=== PATIENT | female | born 1985 | race Caucasian/White ===

== ENCOUNTER 2017-10-26 08:57 | Emergency (ER) | payer OTHER ==
[~2017-10-26] VITALS: Ht 152.4 cm; Wt 52.2 kg
[2017-10-26 09:45] LABS: BASOPHILS % 0.4 % (0.0-1.0); EOSINOPHILS # (AUTO) 0.2 (0.0-0.4); EOSINOPHILS % 4.5 % (0.0-6.0); HEMATOCRIT 38.8 % (34.2-44.1); HEMOGLOBIN 13.4 g/dL (12.0-16.0); LYMPHOCYTES # (AUTO) 2.1 (1.0-3.2); LYMPHOCYTES % 41.8 % (18.0-39.1); MEAN CORPUSCULAR HEMOGLOBIN 31.3 pg (28-32); MEAN CORPUSCULAR HGB CONC 34.5 g/dL (31-35); MEAN CORPUSCULAR VOLUME 90.7 fL (81-99); MONOCYTES # (AUTO) 0.2 (0.2-0.8); MONOCYTES % 4.7 % (4.4-11.3); NEUTROPHILS # (AUTO) 2.5 (2.1-6.9); NEUTROPHILS % 48.2 % (38.7-80.0); PLATELET COUNT 244 x10e3/uL (140-360); RED BLOOD COUNT 4.28 x10e6/uL (3.6-5.1); RED CELL DISTRIBUTION WIDTH 12.1 % (11.7-14.4)
[2017-10-26 09:55] LABS: ANION GAP 10.3 mmol/L (8-16); BLOOD UREA NITROGEN 12 mg/dL (7-26); BUN/CREATININE RATIO 16 (6-25); CALCIUM 8.8 mg/dL (8.4-10.2); CARBON DIOXIDE 26 mmol/L (22-29); CHLORIDE 110 mmol/L (98-107); CREATININE, SERUM 0.77 mg/dL (0.57-1.11); EST GLOMERULAR FILTRATION RATE > 60 ML/MIN (60-); GLUCOSE 100 mg/dL (74-118); POTASSIUM 4.3 mmol/L (3.5-5.1); SODIUM 142 mmol/L (136-145)
--- NOTE | 2017-10-26 10:00 | Diagnostic Imaging Report ---
EXAMINATION: Chest, CHEST 2 VIEWS INDICATION: Chest pain COMPARISON: Chest 2 views 08/13/2014 FINDINGS: LINES: None. Heart: Normal cardiac silhouette. Vascular: The pulmonary vasculature is within normal limits. Mediastinum: No mediastinal, hilar, or axillary mass or lymphadenopathy. Lungs: No parenchymal mass. No focal consolidation. Pleura: No pleural effusion. No pneumothorax. Bones: No acute osseous abnormality. Soft tissues: Normal. Impression: No acute radiographic abnormality. Signed by: Dr. Pj Shore M.D. on 10/26/2017 9:56 AM
[2017-10-26] MEDS ORDERED: IPRATROPIUM BROMIDE 0.02% 2.5 ML NEB NEB STA (10:19)
[2017-10-26] MEDS ORDERED: ALBUTEROL SULF 0.083% NEB SOLN 3 ML NEB NEB STA (10:19)
[2017-10-26] MEDS ORDERED: PROAIR HFA INH8.5 GM INH (10:27)
[2017-10-26] MEDS ORDERED: ZITHROMAX TRI-500 MG PO (10:27)
[2017-10-26] MEDS ORDERED: ACETAMINOPHEN/CODEINE ELIX 120-12 MG/5 ML UDC PO ONE (10:30)
[2017-10-26] MEDS ORDERED: DEXAMETHASONE SOD PHOS 10 MG/1 ML VIAL INJ ONE (10:30)
== END 2017-10-26 11:35 | disposition home or self-care (01) ==
LOC: ER 08:57
DX: R05 Cough (principal); J20.9 Acute bronchitis, unspecified
CPT/HCPCS: 36415; 71020; 80048; 85025; 87400; 99284; J1100; 71046

== ENCOUNTER 2017-10-27 02:28 | Emergency (ER) | payer OTHER ==
[~2017-10-27] VITALS: Ht 180.3 cm; Wt 52.2 kg
[~2017-10-27 02:28] MED LIST: PROAIR HFA INH8.5 GM INH; ZITHROMAX TRI-500 MG PO
--- OUTSIDE RECORDS SUMMARY | 2017-10-27 02:31 | XMS REPORT ---
Author [facility] Address Unknown Phone Unavailable Care Team Providers Care Cardroom Plastic Card Grader Name Role Phone LUDWIG LUIS Unavailable Unavailable Problems This patient has no known problems. Allergies, Adverse Reactions, Alerts This patient has no known allergies or adverse reactions. Medications This patient has no known medications. Results Test Description Test Time Test Comments Text Results Atomic Results Result Comments CHEST 2 VIEWS [place] [address] [place] [address] Patient Name: SYL MACDONALD MR #: [id number] : 1985 Age/Sex: 32/F Req # : [id number] Adm Physician: Ordered by: LUDWIG LUIS MD Report #: [id number] Location: ER Room/Bed: Procedure: [id number] DX/CHEST 2 VIEWS Exam Date: 10/26/17 Exam Time: 0945 REPORT STATUS: Signed EXAMINATION: Chest, CHEST 2 VIEWS INDICATION: Chest pain COMPARISON: Chest 2 views 08/13/2014 FINDINGS : LINES: None. Heart: Normal cardiac silhouette. Vascular: The pulmonary vasculature is within normal limits. Mediastinum: No mediastinal, hilar, or axillary mass or lymphadenopathy. Lungs: No parenchymal mass. No focal consolidation. Pleura: No pleural effusion. No pneumothorax. Bones: No acute osseous abnormality. Soft tissues: Normal. Impression: No acute radiographic abnormality. Signed by : Dr. Pina Maguire M.D. on 10/26/2017 9:56 AM Dictated By: PINA MAGUIRE MD 5 Transcribed By: JENNIFER on 10/26/17955 COPY TO: LUDWIG LUIS MD
--- OUTSIDE RECORDS SUMMARY | 2017-10-27 02:31 | XMS REPORT | Continuity of Care Document ---
Author Author [facility] Organization [facility] Address [address] [place] [address] Phone Unavailable Care Team Providers Care Data Entry Clerk Name Role Phone RENETTA WHITT DO PCP Insurance Providers Guarantor Syl Macdonald Address [address] [place] [address] Email NONE Payer [employer] Policy Number [id number] Subscriber's Name Syl Macdonald Relationship 18 Self / Same As Patient Group Number [id number] Group Name [employer] Effective Date 13 Advance Directives Directive Response Recorded Date/Time Does the patient have an advance directive? No 12/29/12 5:21pm If yes, is advance directive on file with [facility]? No 12/29/12 5:21pm If not on file with [facility] will patient provide a copy? No 12/29/12 5:21pm Do you have a Directive to Physician? No 10/26/17 10:28am Do you have a Medical Power of Speech Therapy Teacher? No 10/26/17 10:28am Do you have an out of hospital Do Not Resuscitate Order? No 10/26/17 10:28am Do you have any special needs we should be aware of? No 10/26/17 10:28am Do you have a support person here with you today? Yes 10/26/17 10:28am Did patient receive Notice of Privacy Practices? Yes 10/26/17 10:28am Did patient receive patient rights and responsibilities? Yes 10/26/17 10:28am Problems No problem information available. Medications Current Home Medications Medication Dose Units Route Directions Days Qty Instructions Start Date Albuterol Sulfate (Proair Hfa Inhaler*) 8.5 Gm Inh 2 Inh Inhalation Every 4 Hours for Shortness Of Breath 1 10/26/17 Azithromycin (Zithromax Tri-Adán) 500 Mg Tablet 500 Mg Oral Daily 5 Days 10/26/17 Social History Smoking Status Start Date Stop Date Never Smoker Hospital Discharge Instructions No hospital discharge instruction information available. Plan of Care Discharge Date 10/26/17 11:35am Disposition HOME, SELF-CARE Condition at Discharge Stable Instructions/Education Provided Bronchitis (Acute) - Adult Forms Provided Work/School Excuse Prescriptions See Medication Section Referrals LEANN LOPEZ MD Address: [address] [place] [address] Additional Instructions/Education 1. increase oral fluids 2. return to ed as needed 3. follow up with your doctor in 1-2 days without fail Functional Status No functional status information available. Allergies, Adverse Reactions, Alerts No known allergies. Immunizations No immunization information available. Vital Signs Acute Vital Signs Vital Response Date/Time Pulse Pulse Rate (adult) 77 bpm (60 - 90) 10/26/2017 10:40am Pulse Pulse Rate (adult) 77 bpm (60 - 90) 10/26/2017 10:40am Respiratory Rate 20 bpm (12 - 24) 10/26/2017 10:40am Height 5 ft 0 in 10/26/2017 9:09am Weight 115 lb 10/26/2017 9:09am Body Mass Index 22.5 kg/m^2 10/26/2017 9:09am Results Laboratory Results Test Name Result Units Flags Reference Collection Date/Time Result Date/ Time Comments White Blood Count 5.12 x10e3/uL 4.8-10.8 10/26/2017 9:30am 10/26/2017 9 :46am Red Blood Count 4.28 x10e6/uL 3.6-5.1 10/26/2017 9:30am 10/26/2017 9: 46am Hemoglobin 13.4 g/dL 12.0-16.0 10/26/2017 9:10/26/2017 9:46am Hematocrit 38.8 % 34.2-44.1 10/26/2017 9:10/26/2017 9:46am Mean Corpuscular Volume 90.7 fL 81-99 10/26/2017 9:10/26/2017 9: 46am Mean Corpuscular Hemoglobin 31.3 pg 28-32 10/26/2017 9:3010/26/2017 9:46am Mean Corpuscular Hemoglobin Concent 34.5 g/dL 31-35 10/26/2017 9:10/26/2017 9:46am Red Cell Distribution Width 12.1 % 11.7-14.4 10/26/2017 9:2017 9:46am Platelet Count 244 x10e3/uL 140-360 10/26/2017 9:10/26/2017 9: 46am Neutrophils (%) (Auto) 48.2 % 38.7-80.0 10/26/2017 9:10/26/2017 9: 46am Lymphocytes (%) (Auto) 41.8 % H 18.0-39.1 10/26/2017 9:10/26/2017 9 :46am Monocytes (%) (Auto) 4.7 % 4.4-11.3 10/26/2017 9:10/26/2017 9: 46am Eosinophils (%) (Auto) 4.5 % 0.0-6.0 10/26/2017 9:10/26/2017 9: 46am Basophils (%) (Auto) 0.4 % 0.0-1.0 10/26/2017 9:10/26/2017 9:46am IM GRANULOCYTES % 0.4 % 0.0-1.0 10/26/2017 9:10/26/2017 9:46am Neutrophils # (Auto) 2.5 2.1-6.9 10/26/2017 9:10/26/2017 9:46am Lymphocytes # (Auto) 2.1 1.0-3.2 10/26/2017 9:10/26/2017 9:46am Monocytes # (Auto) 0.2 0.2-0.8 10/26/2017 9:30am 10/26/2017 9:46am Eosinophils # (Auto) 0.2 0.0-0.4 10/26/2017 9:30am 10/26/2017 9:46am Basophils # (Auto) 0.0 0.0-0.1 10/26/2017 9:30am 10/26/2017 9:46am Absolute Immature Granulocyte (auto 0.02 x10e3/uL 0-0.1 10/26/2017 9: 30am 10/26/2017 9:46am Sodium Level 142 mmol/L 136-145 10/26/2017 9:30am 10/26/2017 9:56am Potassium Level 4.3 mmol/L 3.5-5.1 10/26/2017 9:30am 10/26/2017 9:56am Chloride Level 110 mmol/L H 98-107 10/26/2017 9:30am 10/26/2017 9:56am Influenza Virus Types A,B Antigen NEGATIVE NEGATIVE 10/26/2017 9:30am 10/26/2017 9:56am Carbon Dioxide Level 26 mmol/L 22-10/26/2017 9:30am 10/26/2017 9: 56am Anion Gap 10.3 mmol/L 8-16 10/26/2017 9:30am 10/26/2017 9:56am Blood Urea Nitrogen 12 mg/dL 7-10/26/2017 9:30am 10/26/2017 9:56am Creatinine 0.77 mg/dL 0.57-1.11 10/26/2017 9:30am 10/26/2017 9:56am BUN/Creatinine Ratio 16 6-25 10/26/2017 9:30am 10/26/2017 9:56am Estimat Glomerular Filtration Rate > 60 ML/MIN 60- 10/26/2017 9:30am 9:56am Ranges were taken from the National Kidney Disease Education Program and the [employer] literature. Reference ranges: 60 or greater: Normal 16-59 (for 3 consecutive months): Chronic kidney disease 15 or less: Kidney failure Glucose Level 100 mg/dL 74-118 10/26/2017 9:30am 10/26/2017 9:56am Calcium Level 8.8 mg/dL 8.4-10.2 10/26/2017 9:30am 10/26/2017 9:56am Procedures Procedure Status Date Provider(s) X-ray of chest, two views Active 10/26/17 LUDWIG LUIS MD Encounters Encounter Location Arrival/Admit Date Discharge/Depart Date Attending Provider Departed Emergency Room [facility] 10/26/17 8:57am 11:35am LUDWIG LUIS MD
[2017-10-27] MEDS ORDERED: METHYLPREDNISOLONE SOD SUCC 125 MG/2ML VIAL IV STA (02:53)
[2017-10-27] MEDS ORDERED: SODIUM CHLORIDE 0.9% 1000ML 1,000 ML IV STA (02:53)
[2017-10-27] MEDS ORDERED: FAMOTIDINE 20 MG/2 ML VIAL IV STA (02:53)
[2017-10-27] MEDS ORDERED: ALBUTEROL SULF 0.083% NEB SOLN 3 ML NEB NEB STA (02:53)
[2017-10-27] MEDS ORDERED: IPRATROPIUM BROMIDE 0.02% 2.5 ML NEB NEB ONE (03:00)
[2017-10-27] MEDS ORDERED: DIPHENHYDRAMINE HCL INJ 50 MG/ML VIAL IV ONE (03:00)
== END 2017-10-27 05:00 | disposition home or self-care (01) ==
LOC: ER 02:28
DX: L29.9 Pruritus, unspecified (principal); R21 Rash and other nonspecific skin eruption; R05 Cough; J20.9 Acute bronchitis, unspecified
CPT/HCPCS: 94640; 99284; J1200; J2930; J7030

== ENCOUNTER 2025-05-04 18:27 | Emergency (ER) | payer OTHER ==
[~2025-05-04] VITALS: Ht 152.4 cm; Wt 63.5 kg
[2025-05-04 18:35] VITALS: TEMP 98.2
[2025-05-04 19:05] LABS: BASOPHILS % 0.3 % (0.0-1.0); EOSINOPHILS % 0.5 % (0.0-6.0); LYMPHOCYTES % 40.0 % (18.0-39.1); MONOCYTES % 4.7 % (4.4-11.3); NEUTROPHILS % 54.0 % (38.7-80.0); RED CELL DISTRIBUTION WIDTH 12.7 % (11.7-14.4)
[2025-05-04] MEDS: ONDANSETRON HCL INJ 2MG/ML 2ML 2 MG/ML VIAL IV STA (19:06)
[2025-05-04] MEDS: SODIUM CHLORIDE 0.9% 1000ML 1,000 ML IV STA (19:06)
[2025-05-04 19:22] LABS: LEUKOCYTE ESTERASE ,URINE TRACE (NEGATIVE); PREGNANCY TEST, URINE NEGATIVE (NEGATIVE); PROTEIN,URINE DIPSTICK NEGATIVE (NEGATIVE); URINE UROBILINOGEN 0.2 mg/dL (0.2 - 1)
[2025-05-04 19:25] LABS: EPITHELIAL CELLS,URINE RARE /LPF
[2025-05-04 19:27] LABS: EST GLOMERULAR FILTRATION RATE 88.0 ML/MIN (>=60)
[2025-05-04] MEDS ORDERED: IOPAMIDOL 370 MG/ML 100 ML INFUS..BTL INJ ONE (19:33)
[2025-05-04 22:00] VITALS: PULSE 51; RESP 20
[2025-05-05] MEDS ORDERED: ULTRAM 50MG50 MG PO (00:59)
[2025-05-05 01:08] VITALS: BP 111/77; PULSE 53; RESP 20; O2SAT 99
== END 2025-05-05 01:16 | disposition home or self-care (01) ==
LOC: ER 18:35
DX: R10.31 Right lower quadrant pain (principal); R07.89 Other chest pain; N83.201 Unspecified ovarian cyst, right side; R11.2 Nausea with vomiting, unspecified
CPT/HCPCS: 36415; 74177; 76856; 80053; 81001; 81025; 83690; 85025; 93005; 93976; 99284; J2405; J7030; Q9967